=== PATIENT | female | born 1960 | race Caucasian/White ===

== ENCOUNTER 2016-04-24 19:07 | Observation (INO) | payer BC ==
[2016-04-24] MEDS ORDERED: ONDANSETRON 4 MG/2 ML VIAL IVP ONE (19:57)
[2016-04-24] MEDS ORDERED: NS 1,000 ML IV ONE ×2 (19:57)
[2016-04-24 20:40] LABS: ADD DIFF? NO; ADD MORPH? NO; ADD SCAN? NO; ATYPICAL LYMPHOCYTE FLAG 20 (0-99); FRAGMENT RBC FLAG 0 (0-99); HEMATOCRIT 38.9 % (38.0-47.0); HEMOGLOBIN 13.5 g/dL (12.6-16.3); LEFT SHIFT FLG 90 (0-99); LIPEMIA HEMOLYSIS FLAG 90 (0-99); MEAN CELL HEMOGLOBIN 31.8 pg (27.9-34.1); MEAN CELL HEMOGLOBIN CONCENTR. 34.7 g/dL (32.4-36.7); MEAN CELL VOLUME 91.7 fL (81.5-99.8); MEAN PLATELET VOLUME 10.8 fL (8.7-11.7); PLATELET CLUMPS FLAG 0 (0-99); PLATELET COUNT 150 10^3/uL (150-400); RED BLOOD CELL COUNT 4.24 10^6/uL (4.18-5.33)
[2016-04-24 20:57] LABS: ANION GAP 7 mEq/L (8-16); CALCIUM 8.7 mg/dL (8.5-10.4); CARBON DIOXIDE 25 mEq/l (22-31); CHLORIDE 97 mEq/L (97-110); CREATININE 0.8 mg/dL (0.6-1.0); GLOMERULAR FILTRATION RATE > 60; GLUCOSE 96 mg/dL (70-100); POTASSIUM 3.8 mEq/L (3.5-5.2); SODIUM 129 mEq/L (134-144)
[2016-04-24] MEDS ORDERED: fentaNYL 100 MCG/2 ML INJ ONE (21:13)
[2016-04-24] MEDS: VANCOMYCIN 125 MG/2.5 ML UDL PO ONE ×2 (22:20→23:12)
[2016-04-24] MEDS ORDERED: ONDANSETRON 4 MG/2 ML VIAL IVP PRN (22:25)
[2016-04-24] MEDS ORDERED: PROMETHAZINE HCL 25 MG/ML INJ IVP PRN (22:25)
[2016-04-24] MEDS ORDERED: PROMETHAZINE HCL 25 MG TAB PO PRN (22:25)
[2016-04-24] MEDS ORDERED: ONDANSETRON DISINTEGRATING 4 MG TAB PO PRN (22:25)
[2016-04-24] MEDS ORDERED: oxyCODONE IR 5 MG TAB PO PRN (22:25)
[2016-04-24] MEDS ORDERED: ACETAMINOPHEN 325 MG TAB PO PRN (22:25)
[2016-04-24] MEDS ORDERED: HYDROmorphONE/DILAUDID 2 MG TAB PO PRN (22:47)
--- NOTE | 2016-04-24 22:51 | PDGENHP ---
History and Physical - Chief Complaint Acute diarrhea - History of Present Illness PCP: Dr. Zuniga HPI: 55-year-old female presenting with acute diarrhea characterized as nonbloody, loose bowel movements with associated abdominal pain located diffusely across the abdomen as well as vomiting and anorexia. Onset of symptoms was approximately 4 days ago and duration has been persistent worsening thereafter. She has attempted to maintain good oral liquid intake but has been struggling with oral solids. Prior to her onset of symptoms, she had completed 10 days of oral amoxicillin therapy for what she describes as a sinus infection. That illness and carried the chief symptom of sinus congestion. She otherwise denies any fevers, chills, but does endorse generalized weakness. History Information - Allergies/Home Medication List Allergies/Adverse Reactions: No Known Allergies Allergy (Unverified 04/24/16 19:11) Home Medications: NK [No Known Home Meds] 04/24/16 [Last Taken Unknown] I have personally reviewed and updated: family history, medical history, social history, surgical history - Past Medical History Additional medical history: Regular sinus infections" for which she has been given amoxicillin in the past - Surgical History Reports: no pertinent surgical hx - Family History Additional family history: No family history of inflammatory bowel disease or C diff colitis - Social History Smoking Status: Never smoked Alcohol Use: None Drug Use: Marijuana (Occasional) Additional social history: Independent in ADLs Review of Systems ROS: 10pt was reviewed & negative except for what was stated in HPI & below Constitutional: Reports: weakness Gastrointestinal: Reports: vomitting, abdominal pain, diarrhea Physical Exam Temp Pulse Resp BP Pulse Ox 36.7 C 78 19 104/62 98 04/24/16 22:20 04/24/16 22:20 04/24/16 22:20 04/24/16 22:20 04/24/16 22:20 Constitutional: no apparent distress, appears nourished, not in pain, uncomfortable Eyes: PERRL, anicteric sclera, EOMI Ears, Nose, Mouth, Throat: hearing normal, other (Tacky mucous membranes) Cardiovascular: regular rate and rhythym, no murmur, rub, or gallop, No edema Respiratory: no respiratory distress, no rales or rhonchi, clear to auscultation Gastrointestinal: normoactive bowel sounds, no palpable masses, tenderness ( Left hemidiaphragm to moderate palpation), No hepatosplenomegally, No guarding, No distension Genitourinary: no bladder fullness, no bladder tenderness Skin: warm, normal color, no rashes or abrasions, no fluctuance, no induration, No mottled Neurologic: AAOx3, sensation intact bilaterally, No weakness Psychiatric: interacting appropriately, not anxious, not encephalopathic, thought process linear Lab Data & Imaging Review 04/24/16 20:20 04/24/16 20:20 WBC 5.29 10^3/uL (3.80-9.50) 04/24/16 20:20 RBC 4.24 10^6/uL (4.18-5.33) 04/24/16 20:20 Hgb 13.5 g/dL (12.6-16.3) 04/24/16 20:20 Hct 38.9 % (38.0-47.0) 04/24/16 20:20 MCV 91.7 fL (81.5-99.8) 04/24/16 20:20 MCH 31.8 pg (27.9-34.1) 04/24/16 20:20 MCHC 34.7 g/dL (32.4-36.7) 04/24/16 20:20 RDW 12.0 % (11.5-15.2) 04/24/16 20:20 Plt Count 150 10^3/uL (150-400) 04/24/16 20:20 MPV 10.8 fL (8.7-11.7) 04/24/16 20:20 Neut % (Auto) 70.3 % (39.3-74.2) 04/24/16 20:20 Lymph % (Auto) 18.1 % (15.0-45.0) 04/24/16 20:20 [place] % (Auto) 10.4 % (4.5-13.0) 04/24/16 20:20 Eos % (Auto) 0.6 % (0.6-7.6) 04/24/16 20:20 Baso % (Auto) 0.6 % (0.3-1.7) 04/24/16 20:20 Nucleat RBC Rel Count 0.0 % (0.0-0.2) 04/24/16 20:20 Absolute Neuts (auto) 3.72 10^3/uL (1.70-6.50) 04/24/16 20:20 Absolute Lymphs (auto) 0.96 10^3/uL (1.00-3.00) L 04/24/16 20:20 Absolute Monos (auto) 0.55 10^3/uL (0.30-0.80) 04/24/16 20:20 Absolute Eos (auto) 0.03 10^3/uL (0.03-0.40) 04/24/16 20:20 Absolute Basos (auto) 0.03 10^3/uL (0.02-0.10) 04/24/16 20:20 Absolute Nucleated RBC 0.00 10^3/uL (0-0.01) 04/24/16 20:20 Immature Gran % 0.0 % (0.0-1.1) 04/24/16 20:20 Immature Gran # 0.00 10^3/uL (0.00-0.10) 04/24/16 20:20 Sodium 129 mEq/L (134-144) L 04/24/16 20:20 Potassium 3.8 mEq/L (3.5-5.2) 04/24/16 20:20 Chloride 97 mEq/L (97-110) 04/24/16 20:20 Carbon Dioxide 25 mEq/l (22-31) 04/24/16 20:20 Anion Gap 7 mEq/L (8-16) L 04/24/16 20:20 BUN 9 mg/dL (7-23) 04/24/16 20:20 Creatinine 0.8 mg/dL (0.6-1.0) 04/24/16 20:20 Estimated GFR > 60 04/24/16 20:20 Glucose 96 mg/dL (70-100) 04/24/16 20:20 Calcium 8.7 mg/dL (8.5-10.4) 04/24/16 20:20 C. difficile Tox (PCR) POSITIVE (NEGATIVE) H 04/24/16 20:15 Assessment & Plan Assessment: 55-year-old female presents with acute C difficile diarrhea in the setting of recent antibiotic use Plan: 1. C difficile diarrhea. Acute, evidenced by positive C diff PCR +4 days of profuse diarrhea resulting in hyponatremia and generalized weakness, most likely precipitating factor is amoxicillin which she received for 10 days prior to onset of symptoms -educated the patient and her partner regarding C diff -discussed with Dr. Owens in the emergency department, we have agreed on oral vancomycin 125 q.6 hours, continue for 14 days -patient has received 2 L of normal saline in the emergency department, continue 150 cc/hour of normal saline with supplemental potassium -maintain regular diet, monitor intake and output -antiemetics and as needed pain medications 2. Hypertension. Suspect chronic, no evidence of tachycardia or systemic inflammatory response syndrome -get orthostatics -continue IV fluids -sent serum lactic acid level 3. Hyponatremia. Acute, most likely secondary to hypovolemia in the setting of above -continue normal saline -repeat serum sodium level in a.m. Diet. Regular Prophylaxis. Low risk patient, SCDs Code status. Full Disposition. Anticipated discharge is 04/25/2016, pending clinical stabilization of conditions outlined above. If patient is unable to maintain good oral intake or she continues to have profuse diarrhea requiring ongoing use of IV fluids, she will be upgraded to inpatient admission status after reassessment tomorrow.
[2016-04-24] MEDS: NS W/ 20 KCl/L 1,000 ML IV SCH (23:09)
[2016-04-24] MEDS: HYDROmorphONE/DILAUDID 1 MG/ML SYR IVP PRN (23:31)
[2016-04-25 04:37] VITALS: RESP 18; O2SAT 92
[2016-04-25] MEDS: HYDROmorphONE/DILAUDID 1 MG/ML SYR IVP PRN ×2 (04:58→07:53)
[2016-04-25] MEDS: VANCOMYCIN 125 MG/2.5 ML UDL PO SCH ×2 (05:03→11:43)
[2016-04-25] MEDS: NS W/ 20 KCl/L 1,000 ML IV SCH (05:11)
[2016-04-25 05:22] LABS: ADD MORPH? NO; ADD SCAN? YES; ATYPICAL LYMPHOCYTE FLAG 0 (0-99); FRAGMENT RBC FLAG 0 (0-99); HEMATOCRIT 32.4 % (38.0-47.0); HEMOGLOBIN 11.2 g/dL (12.6-16.3); LIPEMIA HEMOLYSIS FLAG 90 (0-99); MEAN CELL HEMOGLOBIN 31.5 pg (27.9-34.1); MEAN CELL HEMOGLOBIN CONCENTR. 34.6 g/dL (32.4-36.7); MEAN PLATELET VOLUME 11.1 fL (8.7-11.7); PLATELET CLUMPS FLAG 0 (0-99); PLATELET COUNT 137 10^3/uL (150-400); RED BLOOD CELL COUNT 3.56 10^6/uL (4.18-5.33); RED CELL DISTRIBUTION WIDTH 12.1 % (11.5-15.2)
[2016-04-25 05:24] LABS: LEFT SHIFT FLG 150 (0-99)
[2016-04-25 05:55] LABS: ALANINE AMINOTRANSFERASE 54 IU/L (9-52); ALBUMIN 2.5 g/dL (3.5-5.0); ALKALINE PHOSPHATASE 54 IU/L (38-126); ANION GAP 6 mEq/L (8-16); ASPARTATE AMINOTRANSFERASE 42 IU/L (14-46); BILIRUBIN,TOTAL 1.2 mg/dL (0.1-1.4); CARBON DIOXIDE 18 mEq/l (22-31); CHLORIDE 113 mEq/L (97-110); CREATININE 0.7 mg/dL (0.6-1.0); GLOMERULAR FILTRATION RATE > 60; GLUCOSE 71 mg/dL (70-100); MAGNESIUM 1.7 mg/dL (1.6-2.3); POTASSIUM 4.2 mEq/L (3.5-5.2); SODIUM 137 mEq/L (134-144); TOTAL PROTEIN 4.7 g/dL (6.3-8.2)
[2016-04-25 06:27] LABS: ADD DIFF? YES; SCAN POSITIVE
[2016-04-25 06:35] LABS: PLATELET ESTIMATE ADEQUATE (ADEQ)
[2016-04-25 08:13] VITALS: BP 92/52; PULSE 67; TEMP 98.2
--- NOTE | 2016-04-25 16:05 | GDS ---
[f rep st] DISCHARGE SUMMARY DISCHARGE DIAGNOSES: 1. Clostridium difficile diarrhea. 2. Hypertension. 3. Hyponatremia. 4. Dehydration. PHYSICAL EXAM: GENERAL: The patient is alert. VITAL SIGNS: Afebrile at 36.8, pulse is 67, respira tory rate is 18, blood pressure is 92/52. She is saturating 92% on room air. I have seen and evalua trent the patient on the day of discharge. HOSPITAL COURSE: The patient is a 55-year-old female, who presented to the emergency room with compl aints of abdominal pain and diarrhea. She was evaluated and diagnosed with: 1. C difficile diarrhea: During this hospitalization, she was treated with oral vancomycin. She wilcox s been provided a prescription for oral vancomycin at the time of disposition and will be treated for total of 14-day course. Her diarrhea is improving however, not resolving and I have instructed her to return to the emergency room if she continues to have diarrhea in the next 2 days that does not ap pear to be slowing down. 2. Hypertension: She can follow up with her primary physician regarding this condition. 3. Hypotension: The patient is stable with regard to this condition. 4. Hyponatremia, secondary to hypovolemia: This is resolved in the setting of continued IV fluids. DISPOSITION: The patient will be discharged home independently. I have instructed her to follow up in the outpatient setting and to stay hydrated outside the hospital. I have instructed her to return to the emergency room if her symptoms worsen or do not continue to improve. She understands this an d is in agreement with this plan. DISCHARGE MEDICATIONS: I have provided her a prescription for vancomycin on 125 mg q.6 hours, #56. She will follow up with her primary care physician, Dr. Harsh Zuniga, or Infectious Disease whichever she chooses. /[id number]/MODL
--- NOTE | 2016-05-04 15:46 | EDV ---
[f rep st] EMERGENCY DEPARTMENT REPORT CHIEF COMPLAINT: Diarrhea. HISTORY OF PRESENT ILLNESS: Patient is a 55-year-old female with complaint of diffuse abdominal angel n and 4-day history of diarrhea. No blood in the diarrhea. No fever. Diffuse, crampy abdominal pa in. Symptoms were appreciated by 10 course of amoxicillin for sinus infection. Her symptoms of sin us infection have improved. Complete 10-point review of systems significant only for history of pre sent illness. PAST MEDICAL HISTORY: Frequent sinus infections. SOCIAL HISTORY: Single. Nonsmoker. No alcohol. PHYSICAL EXAMINATION: VITAL SIGNS: Shows stable vital signs. EENT: Normal. NECK: Supple withou t adenopathy. LUNGS: Clear. HEART: Regular rate and rhythm without murmur or gallop. ABDOMEN: Soft. Diffuse tenderness, increased bowel sounds. No masses. EXTREMITIES: Normal. NEUROLOGIC: Normal. SKIN: Normal. ED COURSE: IV normal saline. Patient is given 1 L of saline. Stool is sent for Clostridium diffic ile which is positive. Patient is given vancomycin orally in the emergency department. She is also found to have a sodium of 129. On reevaluation, the patient is stable. She and I discussed jazz cagle evaluation, treatment and planning, including need for admission. She expresses understanding and agreement. I consulted and discussed the case with Dr. Powers who agrees to the admission. MEDICAL DECISION MAKING: Patient has new onset Clostridium difficile likely due to her course of am oxicillin for sinus infection. She is also found to have hyponatremia. I considered other electrol yte abnormalities as well as other etiologies of her diarrhea. IMPRESSION: 1. Clostridium difficile. 2. Hyponatremia. PLAN: Admission. /[id number]/MODL
== END 2016-04-25 12:54 | disposition home or self-care (01) ==
LOC: INTOOBSV 21:41 → F3E 23:00
PROVIDERS: ADMIT Internal Medicine; ATTEND Internal Medicine
DX: A04.7 Enterocolitis due to Clostridium difficile (principal); I10 Essential (primary) hypertension; E87.1 Hypo-osmolality and hyponatremia; E86.0 Dehydration
CPT/HCPCS: G0378 ×2; J1170; J2405; J3010

== ENCOUNTER 2016-05-14 09:15 | Emergency (ER) | payer BC ==
--- NOTE | 2016-05-14 10:12 | EDPHY ---
H & P Stated Complaint: c diff increasing diarrhea/nausea Time Seen by Provider: 05/14/16 09:42 - Personal History Current Tetanus/Diphtheria Vaccine: Yes - Medical/Surgical History Hx Asthma: No Hx Chronic Respiratory Disease: No Hx Diabetes: No Hx Cardiac Disease: No Hx Renal Disease: No Hx Cirrhosis: No Hx Alcoholism: No Hx HIV/AIDS: No Hx Splenectomy or Spleen Trauma: No Other PMH: Bunionectomy, D&C 15 years ago, essential tremor c diff - Social History Smoking Status: Never smoked Constitutional: Initial Vital Signs Temperature (C) 37.2 C 05/14/16 09:25 Heart Rate 73 05/14/16 09:25 Respiratory Rate 25 H 05/14/16 09:25 Blood Pressure 91/63 L 05/14/16 09:25 O2 Sat (%) 95 05/14/16 09:25 O2 Delivery Mode Room Air Allergies/Adverse Reactions: No Known Allergies Allergy (Verified 05/14/16 09:24) Home Medications: Medication Instructions Recorded Acetaminophen [Tylenol 325mg (*)] 650 mg PO Q4HRS PRN #0 tab 04/25/16 Vancomycin [Vancomycin (*)] 125 mg PO Q6 #56 cap 04/25/16 Vancomycin [Vancocin Oral Liquid] 125 mg PO QID #120 udl 05/14/16 Medical Decision Making ED Course/Re-evaluation: CHIEF COMPLAINT: Dehydration, frequent bowel movements, recent C. difficile infection HISTORY OF PRESENT ILLNESS: The patient is a 55 y/o female arriving with her complaining of frequent bowel movements and abdominal cramping following a recent C. difficile infection. She was admitted on 04/24/15 for diarrhea following antibiotic use for sinusitis and was ultimately diagnosed with c. difficile and discharged with oral vancomycin. She felt like she was improving over the past few weeks, but yesterday had more than 12 non-diarrhea bowel movements with associated nausea and abdominal cramping. She feels dehydrated and weak and is concerned the infection has returned. She denies other pertinent medical history. REVIEW OF SYSTEMS: A 10 point review of systems was performed and is negative with the exception of the elements mentioned in the history of present illness. PHYSICAL EXAM: HR, BP, O2 Sat, RR. Temp noted General Appearance: Alert, well hydrated, appropriate, and non-toxic appearing. Head: Atraumatic without scalp tenderness or obvious injury Eyes: Pupils equal, round, reactive to light and accommodation, EOMI, no trauma , no injection. Ears: Clear bilaterally, no perforation, normal landmarks Nose: Atraumatic, no rhinorrhea, clear. Throat: There is no erythema or exudates, no lesions, normal tonsils, mucus membranes dry. Neck: Supple, 2+ carotid upstroke, nontender, no lymphadenopathy. Respiratory: No retractions, no distress, no wheezes, and no accessory muscle use. Lungs are clear to auscultation bilaterally. Cardiovascular: Regular rate and rhythm, no murmurs, rubs, or gallops. Bilateral carotid, radial, dorsalis pedis, and posterior tibial pulses intact. Good capillary refill all extremities. Gastrointestinal: Abdomen is soft, mild diffuse tenderness, non-distended, no masses, no rebound, no guarding, no peritoneal signs. Musculoskeletal: Normal active ROM of all extremities, atraumatic. Neurological: Alert, appropriate, and interactive. The patient has normal DTRs and non-focal cranial nerves, motor, sensory, and cerebellar exam. Skin: No rashes, good turgor, no nodules on palpation. Past medical history: C. difficile 04/24/16, sinus infections, hypertension Past surgical history: denies Family history: noncontributory Social history: at bedside. Nonsmoker. Prior medical records reviewed including admission 04/24/16 for c. difficile infection. DIFFERENTIAL DIAGNOSIS: The differential diagnosis for the patient's nausea and diarrhea included but was not limited to c. difficile infection, gastroenteritis, gastritis, appendicitis, and medication side effect. MEDICAL DECISION MAKING: This is a normally healthy 55 y/o female presenting with frequent bowel movements, abdominal cramping, and dehydration following a C. difficile infection earlier this month. She was treated with oral vancomycin and seemed to be improving until yesterday when her symptoms returned. Plan for IV, labs, and GI pathogen panel. Will treat with 2L IV NS, 4mg IV Zofran, 30mg IV Toradol , 125mg PO Vancomycin administered. 1030: Consulted with SALOMÓN Norton. He recommends continuing treatment with 125mg PO Vancomycin. Dr. Fregoso's office will call to arrange follow up with the patient this week. Patient is requesting discharge. I've discussed care plan and follow up with Dr. Fregoso. She is happy with this plan. Return precautions given. - Data Points Laboratory Results: Laboratory Results 05/14/16 10:45 05/14/16 10:45 05/14/16 05/14/16 05/14/16 10:45 10:45 09:40 WBC 10.75 10^3/uL H 10^3/uL (3.80-9.50) RBC 4.22 10^6/uL 10^6/uL (4.18-5.33) Hgb 13.5 g/dL g/dL (12.6-16.3) Hct 39.3 % % (38.0-47.0) MCV 93.1 fL fL (81.5-99.8) MCH 32.0 pg pg (27.9-34.1) MCHC 34.4 g/dL g/dL (32.4-36.7) RDW 12.6 % % (11.5-15.2) Plt Count 190 10^3/uL 10^3/uL (150-400) MPV 11.4 fL fL (8.7-11.7) Neut % (Auto) 89.1 % H % (39.3-74.2) Lymph % (Auto) 6.3 % L % (15.0-45.0) [place] % (Auto) 4.0 % L % (4.5-13.0) Eos % (Auto) 0.0 % L % (0.6-7.6) Baso % (Auto) 0.2 % L % (0.3-1.7) Nucleat RBC Rel Count 0.0 % % (0.0-0.2) Absolute Neuts (auto) 9.58 10^3/uL H 10^3/uL (1.70-6.50) Absolute Lymphs (auto) 0.68 10^3/uL L 10^3/uL (1.00-3.00) Absolute Monos (auto) 0.43 10^3/uL 10^3/uL (0.30-0.80) Absolute Eos (auto) 0.00 10^3/uL L 10^3/uL (0.03-0.40) Absolute Basos (auto) 0.02 10^3/uL 10^3/uL (0.02-0.10) Absolute Nucleated RBC 0.00 10^3/uL 10^3/uL (0-0.01) Immature Gran % 0.4 % % (0.0-1.1) Immature Gran # 0.04 10^3/uL 10^3/uL (0.00-0.10) Sodium 135 mEq/L mEq/L (134-144) Potassium 3.7 mEq/L mEq/L (3.5-5.2) Chloride 101 mEq/L mEq/L (97-110) Carbon Dioxide 24 mEq/l mEq/l (22-31) Anion Gap 10 mEq/L mEq/L (8-16) BUN 13 mg/dL mg/dL (7-23) Creatinine 0.7 mg/dL mg/dL (0.6-1.0) Estimated GFR > 60 Glucose 98 mg/dL mg/dL (70-100) Calcium 9.2 mg/dL mg/dL (8.5-10.4) Total Bilirubin 2.3 mg/dL H mg/dL (0.1-1.4) Conjugated Bilirubin 0.2 mg/dL mg/dL (0.0-0.5) Unconjugated Bilirubin 2.1 mg/dL H mg/dL (0.0-1.1) AST 23 IU/L IU/L (14-46) ALT 32 IU/L IU/L (9-52) Alkaline Phosphatase 68 IU/L IU/L (38-126) Total Protein 6.8 g/dL g/dL (6.3-8.2) Albumin 4.0 g/dL g/dL (3.5-5.0) Lipase 95.0 IU/L IU/L (23-300) C. difficile Tox (PCR) TNP Microbiology Results: MICROBIOLOGY 05/14/16 09:40 Stool Gastrointestinal Tract Panel (PCR) - Final Clostridium Difficile Detected Medications Given: Discontinued Medications Sodium Chloride (Ns) 1,000 mls @ 0 mls/hr IV ONCE ONE PRN Reason: Wide Open Stop: 05/14/16 10:21 Last Admin: 05/14/16 10:51 Dose: 1,000 mls Sodium Chloride (Ns) 1,000 mls @ 0 mls/hr IV ONCE ONE PRN Reason: Wide Open Stop: 05/14/16 10:21 Last Admin: 05/14/16 11:45 Dose: 1,000 mls Ketorolac Tromethamine (Toradol) 30 mg IVP EDNOW ONE Stop: 05/14/16 10:21 Last Admin: 05/14/16 10:51 Dose: 30 mg Ondansetron HCl (Zofran) 4 mg IVP EDNOW ONE Stop: 05/14/16 10:21 Last Admin: 05/14/16 10:51 Dose: 4 mg Departure - Departure Disposition: Home, Routine, Self-Care Clinical Impression: Dehydration, C. difficile diarrhea Condition: Good Instructions: Vancomycin (By mouth), Clostridium Difficile Infection (ED), Acute Diarrhea (ED) Additional Instructions: 1. Take Vancomycin as prescribed. Be sure to complete the entire prescription. 2. Increase fluid intake as tolerated 3. Make a follow up appointment with Dr. Fregoso, infectious disease, in the next week. 4. Return to the ED for any worsening of condition. Referrals: KATE CHRISTENSEN [Primary Care Provider] - As per Instructions Smooth Fregoso MD [Medical Doctor] - As per Instructions Prescriptions: Vancomycin [Vancocin Oral Liquid] 125 mg PO QID #120 udl Report Scribed for: Marco Romero Report Scribed by: Trudi Morejon Date of Report: 05/14/16 Time of Report: 10:22
[2016-05-14] MEDS ORDERED: ONDANSETRON 4 MG/2 ML VIAL IVP ONE (10:20)
[2016-05-14] MEDS ORDERED: NS 1,000 ML IV ONE ×2 (10:20)
[2016-05-14] MEDS ORDERED: KETOROLAC 30 MG/1 ML SDV IVP ONE (10:20)
[2016-05-14 10:55] LABS: % IMMATURE GRANULYOCYTES 0.4 % (0.0-1.1); ABSOLUTE IMMATURE GRANULOCYTES 0.04 10^3/uL (0.00-0.10); ADD DIFF? NO; ADD MORPH? NO; ADD SCAN? NO; ATYPICAL LYMPHOCYTE FLAG 10 (0-99); FRAGMENT RBC FLAG 0 (0-99); HEMATOCRIT 39.3 % (38.0-47.0); HEMOGLOBIN 13.5 g/dL (12.6-16.3); LEFT SHIFT FLG 0 (0-99); LIPEMIA HEMOLYSIS FLAG 90 (0-99); MEAN CELL HEMOGLOBIN CONCENTR. 34.4 g/dL (32.4-36.7); MEAN CELL VOLUME 93.1 fL (81.5-99.8); MEAN PLATELET VOLUME 11.4 fL (8.7-11.7); PLATELET CLUMPS FLAG 0 (0-99); PLATELET COUNT 190 10^3/uL (150-400); RED BLOOD CELL COUNT 4.22 10^6/uL (4.18-5.33); RED CELL DISTRIBUTION WIDTH 12.6 % (11.5-15.2)
[2016-05-14 11:12] LABS: ALANINE AMINOTRANSFERASE 32 IU/L (9-52); ALKALINE PHOSPHATASE 68 IU/L (38-126); ANION GAP 10 mEq/L (8-16); ASPARTATE AMINOTRANSFERASE 23 IU/L (14-46); BILIRUBIN,TOTAL 2.3 mg/dL (0.1-1.4); BILIRUBIN-CONJUGATED 0.2 mg/dL (0.0-0.5); BILIRUBIN-UNCONJUGATED 2.1 mg/dL (0.0-1.1); CALCIUM 9.2 mg/dL (8.5-10.4); CARBON DIOXIDE 24 mEq/l (22-31); CHLORIDE 101 mEq/L (97-110); CREATININE 0.7 mg/dL (0.6-1.0); GLOMERULAR FILTRATION RATE > 60; GLUCOSE 98 mg/dL (70-100); POTASSIUM 3.7 mEq/L (3.5-5.2); SODIUM 135 mEq/L (134-144); TOTAL PROTEIN 6.8 g/dL (6.3-8.2)
[2016-05-14 11:52] VITALS: RESP 16
[2016-05-14] MEDS ORDERED: VANCOMYCIN 125 MG/2.5 ML UDL PO SCH ×2 (12:00)
[2016-05-14] MEDS ORDERED: ACETAMINOPHEN 500 MG TAB ONE (12:06)
[2016-05-14 12:40] VITALS: BP 89/55; PULSE 74; TEMP 99.7; O2SAT 93
== END 2016-05-14 12:40 | disposition home or self-care (01) ==
DX: E86.0 Dehydration (principal); A04.7 Enterocolitis due to Clostridium difficile; I10 Essential (primary) hypertension
CPT/HCPCS: 96374; J1885; J2405

== ENCOUNTER → 2016-11-06 | Outpatient (CLI) | payer BC | LOC: BMCIMAGING 09:59 | PROVIDERS: ATTEND Internal Medicine | DX: S89.91XA Unspecified injury of right lower leg, initial encounter (principal) ==

== ENCOUNTER → 2018-01-29 | Outpatient (CLI) | payer BC | LOC: FIMAGING 10:57 | PROVIDERS: ATTEND Internal Medicine | DX: E21.3 Hyperparathyroidism, unspecified (principal) | CPT/HCPCS: 78070; A9500; A9516 ==